=== PATIENT | male | born 1935 | race Caucasian/White ===

== ENCOUNTER 2022-12-03 14:24 | Inpatient (IN) ==
[2022-12-03] MEDS ORDERED: Dexamethasone IV 4 MG/ML VIAL 1 ml VIAL IV SLOW PU ONE (15:11)
[2022-12-03 15:13] LABS: ABS Basophils 0.1 10^3/uL (0.0-0.1); ABS Eosinophils 0.1 10^3/uL (0.0-0.5); ABS Lymphocytes 1.5 10^3/uL (1.0-4.8); ABS Monocytes 0.4 10^3/uL (0.0-1.1); ABS Neutrophils 4.2 10^3/uL (1.5-7.6); ABS Nucleated RBC 0.01 10^3/ul; Eosinophil % 1.9 %; Hematocrit 40.4 % (38-53); Hemoglobin 13.8 g/dL (13.2-16.3); Lymphocyte % 24.2 %; Mean Corpuscular Hgb Conc 34.2 g/dL (31-36); Mean Corpuscular Volume 96.5 fL (80-97); Mean Platelet Volume 7.8 fL (7.5-11.2); Nucleated Red Blood Cells % 0.2 %/100WBC (0.0-0.8); Platelet Count 251 10^3/uL (150-450); Red Blood Count 4.19 10^6/uL (4.06-5.63); White Blood Count 6.2 10^3/uL (3.6-10.2)
[2022-12-03 15:20] LABS: INR 1.05 (0.83-1.13)
[2022-12-03 15:37] LABS: Albumin 4.2 g/dL (3.2-5.2); Anion Gap 7 mmol/L (2-16); CO2 Carbon Dioxide 24 mmol/L (22-32); Calcium 9.2 mg/dL (8.6-10.3); Chloride 108 mmol/L (101-111); Potassium 4.4 mmol/L (3.5-5.0); Sodium 139 mmol/L (135-145)
[2022-12-03 15:43] LABS: ALT 8 U/L (7-52); AST 14 U/L (13-39); Albumin/Globulin Ratio 1.8 (1-3); Alkaline Phosphatase 62 U/L (35-149); Blood Urea Nitrogen 23 mg/dL (6-24); Creatinine, Serum 1.33 mg/dL (0.67-1.17); Globulin 2.4 g/dL (2-4); Glucose 94 mg/dL (70-100); Total Protein 6.6 g/dL (6.4-8.9); eGFR CKD-EPI 52.4 (>60)
[2022-12-03 15:44] LABS: HDL Cholesterol 53.6 mg/dL
[2022-12-03] MEDS ORDERED: levETIRAcetam 1000MG IVPREMIX 1,000 MG/100 ML BAG IVPB ONE (15:51)
[2022-12-03 16:07] LABS: Alcohol, S < 13 mg/dL (<13)
[2022-12-03 16:21] LABS: TSH Ultra Thyroid Stim Horm 1.12 mcIU/mL (0.34-5.60)
[2022-12-03] MEDS ORDERED: Labetalol IV 5 MG/ML 20 ml VIAL IV PUSH ONE (16:51)
[2022-12-03] MEDS: Pantoprazole VIAL 40 MG VIAL IV SCH (21:01)
[2022-12-03] MEDS: Dexamethasone IV 4 MG/ML VIAL 1 ml VIAL IV SLOW PU SCH (21:02)
[2022-12-03] MEDS: Enoxaparin 40 MG/0.4 ML SYR SUBCUT SCH (21:06)
[2022-12-04] MEDS: Dexamethasone IV 4 MG/ML VIAL 1 ml VIAL IV SLOW PU SCH ×4 (02:15→20:34)
[2022-12-04 04:14] LABS: ABS Lymphocytes 0.7 10^3/uL (1.0-4.8); Hematocrit 33.3 % (38-53); Hemoglobin 11.6 g/dL (13.2-16.3); Lymphocyte % 11.6 %; Mean Corpuscular Hemoglobin 33.7 pg (27-33); Mean Corpuscular Hgb Conc 34.9 g/dL (31-36); Mean Corpuscular Volume 96.5 fL (80-97); Mean Platelet Volume 7.7 fL (7.5-11.2); Nucleated Red Blood Cells % 0.1 %/100WBC (0.0-0.8); Platelet Count 202 10^3/uL (150-450); Red Blood Count 3.45 10^6/uL (4.06-5.63); Red Cell Distribution Width 13.8 % (12-17); White Blood Count 5.7 10^3/uL (3.6-10.2)
[2022-12-04] MEDS: levETIRAcetam 500 MG IVPREMIX 500 MG/100 ML BAG IV SCH ×2 (04:23→19:30)
[2022-12-04 04:36] LABS: Albumin 3.3 g/dL (3.2-5.2); Albumin/Globulin Ratio 1.9 (1-3); Calcium 7.5 mg/dL (8.6-10.3); Creatinine, Serum 1.18 mg/dL (0.67-1.17); Globulin 1.7 g/dL (2-4); Magnesium 1.5 mg/dL (1.9-2.7); Potassium 3.6 mmol/L (3.5-5.0); Total Bilirubin 0.5 mg/dL (0.2-1.0); eGFR CKD-EPI 60.5 (>60)
[2022-12-04] MEDS ORDERED: Magnesium Sulfate IV 3 GM in NS 0.9% 100 ml BAG 100 ML IVPB ONE (05:57)
[2022-12-04] MEDS ORDERED: Magnesium Sulfate IV 1GM/100ML 1 GM/100 ML BAG IV ONE (07:44)
[2022-12-04 07:59] LABS: Urine Appearance Clear; Urine Bilirubin Negative (Negative); Urine Blood Negative (Negative); Urine Color Yellow; Urine Glucose Negative (Negative); Urine Ketones Negative (Negative); Urine Nitrite Negative (Negative); Urine Protein 2+(100 mg/dL) (Negative); Urine Specific Gravity 1.014 (1.002-1.030); Urine Urobilinogen Negative (Negative)
[2022-12-04 08:10] LABS: Urine Bacteria Absent (Absent); Urine Red Blood Cell Trace(0-2/hpf) (Absent); Urine White Blood Cell Trace(0-5/hpf) (Absent)
[2022-12-04] MEDS ORDERED: Gadoteridol (CONTRAST) 279.3 MG/ML 10 ML IV ONE (09:00)
[2022-12-04] MEDS ORDERED: LORazepam 2 mg VIAL 1 ml IV PUSH ONE ×3 (12:02→12:49)
[2022-12-04] MEDS ORDERED: Lorazepam PYXIS KEY PRN ×3 (12:02→12:49)
[2022-12-04] MEDS ORDERED: LORazepam 2 mg VIAL 1 ml ONE ×2 (12:49→15:59)
[2022-12-04] MEDS ORDERED: Haloperidol 5 mg/ml SDV IV/IM 5 MG/ML AMP IV SLOW PU PRN (16:03)
[2022-12-04] MEDS ORDERED: Haloperidol 5 mg/ml SDV IV/IM 5 MG/ML AMP ONE ×2 (16:04→16:29)
[2022-12-04] MEDS ORDERED: Haloperidol 5 mg/ml SDV IV/IM 5 MG/ML AMP IV SLOW PU ONE ×2 (16:17)
[2022-12-04] MEDS ORDERED: Morphine 2 MG/ML SYRINGE ONE (17:13)
[2022-12-04] MEDS ORDERED: OLANZapine IM (NF) 10 MG VIAL IM ONE ×2 (17:41→18:31)
[2022-12-04] MEDS: Enoxaparin 40 MG/0.4 ML SYR SUBCUT SCH (20:33)
[2022-12-04] MEDS: Pantoprazole VIAL 40 MG VIAL IV SCH (20:33)
[2022-12-04] MEDS ORDERED: Dexmedetomidine 1,000 MCG in NS 0.9% 250 ml 240 ML IV SCH (22:00)
[2022-12-05] MEDS: Dexamethasone IV 4 MG/ML VIAL 1 ml VIAL IV SLOW PU SCH ×3 (02:17→18:10)
[2022-12-05 03:43] LABS: ABS Lymphocytes 0.8 10^3/uL (1.0-4.8); ABS Monocytes 0.5 10^3/uL (0.0-1.1); ABS Neutrophils 14.1 10^3/uL (1.5-7.6); Hematocrit 38.4 % (38-53); Hemoglobin 13.1 g/dL (13.2-16.3); Lymphocyte % 5.3 %; Mean Corpuscular Hemoglobin 32.7 pg (27-33); Mean Corpuscular Hgb Conc 34.1 g/dL (31-36); Mean Corpuscular Volume 95.9 fL (80-97); Mean Platelet Volume 8.2 fL (7.5-11.2); Platelet Count 239 10^3/uL (150-450); White Blood Count 15.4 10^3/uL (3.6-10.2)
[2022-12-05 04:04] LABS: Creatinine, Serum 1.36 mg/dL (0.67-1.17); Magnesium 2.6 mg/dL (1.9-2.7); Potassium 4.8 mmol/L (3.5-5.0)
[2022-12-05] MEDS: levETIRAcetam 500 MG IVPREMIX 500 MG/100 ML BAG IV SCH (05:19)
[2022-12-05] MEDS ORDERED: Dexamethasone IV 4 MG/ML VIAL 1 ml VIAL IV SLOW PU SCH (10:00)
[2022-12-05] MEDS ORDERED: NS 0.9% 1000 ml BAG 500 ML IV ONE (11:36)
[2022-12-05] MEDS ORDERED: Iodixanol (CONTRAST) 320 MG/ML 100 ML SDV IV ONE (13:59)
[2022-12-05] MEDS ORDERED: Polyethylene Glycol 3350 17 GM PACKET PO PRN (14:38)
[2022-12-05] MEDS ORDERED: NS 0.9% 1000 ml BAG 500 ML IV SCH (14:45)
[2022-12-05] MEDS ORDERED: Labetalol IV 5 MG/ML 20 ml VIAL IV PUSH ONE (18:01)
[2022-12-05] MEDS: Enoxaparin 40 MG/0.4 ML SYR SUBCUT SCH (20:28)
[2022-12-05] MEDS: Pantoprazole VIAL 40 MG VIAL IV SCH (20:28)
[2022-12-06] MEDS: Dexamethasone IV 4 MG/ML VIAL 1 ml VIAL IV SLOW PU SCH ×3 (00:39→16:04)
[2022-12-06 06:16] LABS: ABS Lymphocytes 0.6 10^3/uL (1.0-4.8); ABS Monocytes 0.4 10^3/uL (0.0-1.1); Hemoglobin 13.1 g/dL (13.2-16.3); Lymphocyte % 4.7 %; Mean Corpuscular Hemoglobin 32.6 pg (27-33); Mean Corpuscular Hgb Conc 33.6 g/dL (31-36); Mean Platelet Volume 8.2 fL (7.5-11.2); Platelet Count 226 10^3/uL (150-450); Red Blood Count 4.03 10^6/uL (4.06-5.63); Red Cell Distribution Width 14.2 % (12-17)
[2022-12-06 06:36] LABS: Calcium 8.7 mg/dL (8.6-10.3); Creatinine, Serum 1.32 mg/dL (0.67-1.17); Magnesium 2.3 mg/dL (1.9-2.7); Potassium 4.6 mmol/L (3.5-5.0); eGFR CKD-EPI 52.9 (>60)
[2022-12-06] MEDS ORDERED: Labetalol IV 5 MG/ML 20 ml VIAL IV PUSH ONE (08:19)
[2022-12-06] MEDS ORDERED: Gadoteridol (CONTRAST) 279.3 MG/ML 10 ML IV ONE (15:56)
[2022-12-06] MEDS: Enoxaparin 40 MG/0.4 ML SYR SUBCUT SCH (20:43)
[2022-12-06] MEDS: Pantoprazole VIAL 40 MG VIAL IV SCH (20:43)
[2022-12-07] MEDS: Dexamethasone IV 4 MG/ML VIAL 1 ml VIAL IV SLOW PU SCH ×2 (01:12→08:33)
[2022-12-07 14:35] VITALS: BP 141/64
== END 2022-12-07 17:40 | disposition home or self-care (01) | DRG 70 ==
LOC: ED 14:24 → SUATTDRO 17:00 → EDHOLD 17:00 → ICU 19:44 → MEDTELE 12-06 20:22
PROVIDERS: ADMIT Internal Medicine Pulmonary Disease; ATTEND Internal Medicine

== ENCOUNTER 2023-03-21 12:56 | Inpatient (IN) ==
[2023-03-21 14:51] LABS: Hematocrit 35.6 % (38-53); Hemoglobin 12.1 g/dL (13.2-16.3); Mean Corpuscular Hemoglobin 33.4 pg (27-33); Mean Corpuscular Hgb Conc 33.9 g/dL (31-36); Mean Corpuscular Volume 98.5 fL (80-97); Mean Platelet Volume 7.3 fL (7.5-11.2); Platelet Count 166 10^3/uL (150-450); Red Blood Count 3.61 10^6/uL (4.06-5.63); Red Cell Distribution Width 16.3 % (12-17); White Blood Count 6.7 10^3/uL (3.6-10.2)
[2023-03-21 15:26] LABS: Albumin 2.8 g/dL (3.2-5.2); C Reactive Protein 98.47 mg/L (<8.01); Calcium 8.4 mg/dL (8.6-10.3); Creatinine, Serum 1.57 mg/dL (0.67-1.17); Globulin 2.8 g/dL (2-4); Potassium 4.3 mmol/L (3.5-5.0); Total Bilirubin 0.5 mg/dL (0.2-1.0); Total Protein 5.6 g/dL (6.4-8.9); eGFR CKD-EPI 42.7 (>60)
[2023-03-21 16:02] LABS: ABS Lymphocytes 0.3 10^3/uL (1.0-4.8); ABS Monocytes 0.2 10^3/uL (0.0-1.1); ABS Neutrophils 6.2 10^3/uL (1.5-7.6); Eosinophil % 0.1 %; Lymphocyte % 4.2 %; Nucleated Red Blood Cells % 0.1 %/100WBC (0.0-0.8); RBC Morphology Normal (Normal)
[2023-03-21] MEDS: cefTRIAXone 1 gm/50 mL D5W 1 GM/50 ML BAG IV ONE (16:36)
[2023-03-21] MEDS: Iodixanol (CONTRAST) 320 MG/ML 100 ML SDV IV ONE (16:44)
[2023-03-21] MEDS: Azithromycin 500 mg/250 ml NS 500 MG/250 ML BAG IVPB ONE (16:53)
[2023-03-21] MEDS: Lactated Ringers 1000 ml BAG 1,000 ML IV ONE (16:53)
[2023-03-21] MEDS ORDERED: Vancomycin per Pharmacy 1 EA NOTE FOLLOW UP SCH (20:00)
[2023-03-21 20:16] LABS: Urine Appearance Cloudy; Urine Bilirubin Negative (Negative); Urine Blood Negative (Negative); Urine Color Yellow; Urine Glucose Negative (Negative); Urine Ketones Negative (Negative); Urine Nitrite Negative (Negative); Urine Protein 2+(100 mg/dL) (Negative); Urine Urobilinogen Negative (Negative)
[2023-03-21 20:25] LABS: Magnesium 1.8 mg/dL (1.9-2.7)
[2023-03-21 20:29] LABS: Urine Bacteria Absent (Absent); Urine Red Blood Cell 3+(>10/hpf) (Absent); Urine Squamous Epithelial Cell Present (Absent); Urine White Blood Cell 2+(11-20/hpf) (Absent)
[2023-03-21] MEDS: Cefepime 2 GM in Dextrose 2 GM/50 ML BAG IV SCH (20:38)
[2023-03-21] MEDS: Vancomycin 1,000 MG in NS 0.9% 250 ml 250 ML IVPB ONE (21:53)
[2023-03-21] MEDS: Senna TAB 8.6 mg TAB PO SCH (21:57)
[2023-03-21] MEDS: Enoxaparin 40 MG/0.4 ML SYR SUBCUT SCH (21:57)
[2023-03-21 22:25] LABS: Folate 15.37 ng/mL (5.90-24.80)
[2023-03-21] MEDS: Magnesium Sulfate 2 gm BAG 2 GM/50 ML BAG IVPB ONE (23:34)
[2023-03-22 05:40] LABS: ABS Lymphocytes 0.6 10^3/uL (1.0-4.8); ABS Monocytes 0.1 10^3/uL (0.0-1.1); ABS Neutrophils 6.3 10^3/uL (1.5-7.6); ABS Nucleated RBC 0.01 10^3/ul; Eosinophil % 0.4 %; Hematocrit 33.9 % (38-53); Hemoglobin 11.8 g/dL (13.2-16.3); Lymphocyte % 9.1 %; Mean Corpuscular Hemoglobin 34.1 pg (27-33); Mean Corpuscular Hgb Conc 34.6 g/dL (31-36); Mean Corpuscular Volume 98.4 fL (80-97); Mean Platelet Volume 7.1 fL (7.5-11.2); Nucleated Red Blood Cells % 0.2 %/100WBC (0.0-0.8); Platelet Count 163 10^3/uL (150-450); Red Blood Count 3.45 10^6/uL (4.06-5.63); Red Cell Distribution Width 16.9 % (12-17); White Blood Count 7.1 10^3/uL (3.6-10.2)
[2023-03-22 05:54] LABS: Albumin 2.7 g/dL (3.2-5.2); Albumin/Globulin Ratio 1.1 (1-3); Creatinine, Serum 1.31 mg/dL (0.67-1.17); Globulin 2.4 g/dL (2-4); HDL Cholesterol 40.5 mg/dL; Magnesium 2.1 mg/dL (1.9-2.7); Total Bilirubin 0.5 mg/dL (0.2-1.0); Total Protein 5.1 g/dL (6.4-8.9)
[2023-03-22] MEDS: Aspirin EC 81 mg TAB.EC (enteric coated) PO SCH (07:47)
[2023-03-22] MEDS: Cefepime 2 GM in Dextrose 2 GM/50 ML BAG IV SCH (07:47)
[2023-03-22] MEDS: Polyethylene Glycol 3350 17 GM PACKET PO SCH (07:47)
[2023-03-22] MEDS: Memantine XR 7 mg CAP PO SCH (07:50)
[2023-03-22] MEDS: NS 0.9% 1000 ml BAG 1,000 ML IV SCH (14:34)
[2023-03-22] MEDS: Azithromycin 500 mg/250 ml NS 500 MG/250 ML BAG IVPB SCH (15:56)
[2023-03-22] MEDS: Furosemide 20 mg/2 ml IV VIAL IV ONE (17:55)
[2023-03-22] MEDS ORDERED: Vancomycin 1000 MG in NS 0.9% 250 ML IVPB SCH (21:00)
[2023-03-23 07:09] LABS: ABS Lymphocytes 0.6 10^3/uL (1.0-4.8); ABS Monocytes 0.1 10^3/uL (0.0-1.1); ABS Neutrophils 5.2 10^3/uL (1.5-7.6); ABS Nucleated RBC 0.01 10^3/ul; Hematocrit 31.8 % (38-53); Lymphocyte % 9.5 %; Mean Corpuscular Hemoglobin 33.6 pg (27-33); Mean Corpuscular Hgb Conc 34.5 g/dL (31-36); Mean Corpuscular Volume 97.6 fL (80-97); Mean Platelet Volume 7.3 fL (7.5-11.2); Nucleated Red Blood Cells % 0.1 %/100WBC (0.0-0.8); Platelet Count 160 10^3/uL (150-450); Red Blood Count 3.26 10^6/uL (4.06-5.63); Red Cell Distribution Width 16.4 % (12-17)
[2023-03-23 07:31] LABS: Calcium 8.2 mg/dL (8.6-10.3); Creatinine, Serum 1.43 mg/dL (0.67-1.17); Potassium 4.4 mmol/L (3.5-5.0); eGFR CKD-EPI 47.7 (>60)
[2023-03-23 16:01] LABS: PCO2 Arterial 30 mmHg (35-45); PO2 Arterial 70 mmHg (80-100)
[2023-03-23] MEDS: SULFAMETHOXAZOLE IVPB SCH (16:12)
[2023-03-23] MEDS: TRIMETH IVPB SCH (16:12)
[2023-03-23] MEDS: D5W IVPB SCH (16:12)
[2023-03-23] MEDS: EPINEPHrine Anaphylaxis SYR CERTADOSE SYR KIT IM ONE ×2 (17:50→19:09)
[2023-03-23] MEDS: Magnesium Sulfate IV 1GM/100ML 1 GM/100 ML BAG IV ONE (18:13)
[2023-03-23] MEDS: Albuterol 2.5mg/3 ml (0.083%) NEB.SOLN INH ONE (19:06)
[2023-03-23] MEDS: methylPREDNISolone SOD SUCC 125 mg 2 ML VIAL IV ONE (19:14)
[2023-03-24] MEDS ORDERED: Lorazepam PYXIS KEY PRN (02:12)
[2023-03-24] MEDS: LORazepam 2 mg VIAL 1 ml IV PUSH ONE (02:27)
[2023-03-24 05:56] LABS: Hematocrit 33.3 % (38-53); Hemoglobin 11.5 g/dL (13.2-16.3); Mean Corpuscular Hemoglobin 33.4 pg (27-33); Mean Corpuscular Hgb Conc 34.4 g/dL (31-36); Mean Platelet Volume 7.5 fL (7.5-11.2); Platelet Count 177 10^3/uL (150-450); Red Blood Count 3.43 10^6/uL (4.06-5.63); Red Cell Distribution Width 16.6 % (12-17); White Blood Count 7.4 10^3/uL (3.6-10.2)
[2023-03-24 06:01] LABS: Calcium 8.9 mg/dL (8.6-10.3); Creatinine, Serum 1.45 mg/dL (0.67-1.17); Potassium 4.1 mmol/L (3.5-5.0); eGFR CKD-EPI 46.9 (>60)
[2023-03-24 07:34] LABS: ABS Lymphocytes 0.6 10^3/uL (1.0-4.8); ABS Monocytes 0.1 10^3/uL (0.0-1.1); ABS Neutrophils 6.7 10^3/uL (1.5-7.6); ABS Nucleated RBC 0.01 10^3/ul; Lymphocyte % 7.8 %; Nucleated Red Blood Cells % 0.1 %/100WBC (0.0-0.8)
[2023-03-24] MEDS ORDERED: Vancomycin Trough Check NOTE FOLLOW UP ONE (20:30)
[2023-03-25 02:01] LABS: Urine Appearance Clear; Urine Bilirubin Negative (Negative); Urine Blood 2+ (Negative); Urine Color Yellow; Urine Glucose Negative (Negative); Urine Ketones Negative (Negative); Urine Nitrite Negative (Negative); Urine Protein 2+(100 mg/dL) (Negative); Urine Specific Gravity 1.015 (1.002-1.030); Urine Urobilinogen Negative (Negative)
[2023-03-25 02:03] LABS: Urine Bacteria Absent (Absent); Urine Red Blood Cell 3+(>10/hpf) (Absent); Urine White Blood Cell Trace(0-5/hpf) (Absent)
[2023-03-25 08:16] LABS: ABS Lymphocytes 1.1 10^3/uL (1.0-4.8); ABS Monocytes 0.3 10^3/uL (0.0-1.1); ABS Neutrophils 8.6 10^3/uL (1.5-7.6); ABS Nucleated RBC 0.02 10^3/ul; Hematocrit 31.9 % (38-53); Hemoglobin 11.2 g/dL (13.2-16.3); Lymphocyte % 10.6 %; Mean Corpuscular Hemoglobin 33.9 pg (27-33); Mean Corpuscular Hgb Conc 35.2 g/dL (31-36); Mean Corpuscular Volume 96.2 fL (80-97); Mean Platelet Volume 7.6 fL (7.5-11.2); Nucleated Red Blood Cells % 0.2 %/100WBC (0.0-0.8); Platelet Count 195 10^3/uL (150-450); Red Blood Count 3.32 10^6/uL (4.06-5.63); Red Cell Distribution Width 16.5 % (12-17); White Blood Count 9.9 10^3/uL (3.6-10.2)
[2023-03-25 08:36] LABS: Calcium 8.7 mg/dL (8.6-10.3); Creatinine, Serum 1.5 mg/dL (0.67-1.17); Potassium 4.6 mmol/L (3.5-5.0); eGFR CKD-EPI 45.1 (>60)
[2023-03-26 06:02] LABS: ABS Lymphocytes 0.9 10^3/uL (1.0-4.8); ABS Monocytes 0.3 10^3/uL (0.0-1.1); ABS Neutrophils 9.2 10^3/uL (1.5-7.6); ABS Nucleated RBC 0.02 10^3/ul; Eosinophil % 0.1 %; Hematocrit 34.5 % (38-53); Hemoglobin 11.8 g/dL (13.2-16.3); Mean Corpuscular Hemoglobin 33.3 pg (27-33); Mean Corpuscular Hgb Conc 34.2 g/dL (31-36); Mean Corpuscular Volume 97.3 fL (80-97); Mean Platelet Volume 7.7 fL (7.5-11.2); Nucleated Red Blood Cells % 0.2 %/100WBC (0.0-0.8); Platelet Count 207 10^3/uL (150-450); Red Blood Count 3.55 10^6/uL (4.06-5.63); Red Cell Distribution Width 16.3 % (12-17); White Blood Count 10.4 10^3/uL (3.6-10.2)
[2023-03-26 06:20] LABS: Calcium 8.9 mg/dL (8.6-10.3); Creatinine, Serum 1.37 mg/dL (0.67-1.17); Magnesium 2.2 mg/dL (1.9-2.7); Potassium 4.4 mmol/L (3.5-5.0); eGFR CKD-EPI 50.2 (>60)
[2023-03-26] MEDS: Ondansetron 4 mg VIAL 2 MG/ML 2 ml VIAL IV PRN (09:12)
[2023-03-27 09:12] LABS: Hematocrit 36.7 % (38-53); Hemoglobin 12.8 g/dL (13.2-16.3); Mean Corpuscular Hemoglobin 33.9 pg (27-33); Mean Corpuscular Hgb Conc 34.9 g/dL (31-36); Mean Corpuscular Volume 97.2 fL (80-97); Mean Platelet Volume 7.5 fL (7.5-11.2); Platelet Count 209 10^3/uL (150-450); Red Blood Count 3.77 10^6/uL (4.06-5.63); Red Cell Distribution Width 16.6 % (12-17); White Blood Count 9.6 10^3/uL (3.6-10.2)
[2023-03-27 09:30] LABS: Calcium 9.2 mg/dL (8.6-10.3); Creatinine, Serum 1.38 mg/dL (0.67-1.17); Magnesium 2.3 mg/dL (1.9-2.7); Potassium 4.3 mmol/L (3.5-5.0); eGFR CKD-EPI 49.8 (>60)
[2023-03-27 09:49] LABS: ABS Basophils 0.1 10^3/uL (0.0-0.1); ABS Lymphocytes 0.9 10^3/uL (1.0-4.8); ABS Monocytes 0.3 10^3/uL (0.0-1.1); ABS Neutrophils 8.4 10^3/uL (1.5-7.6); ABS Nucleated RBC 0.03 10^3/ul; Lymphocyte % 9.1 %; Nucleated Red Blood Cells % 0.4 %/100WBC (0.0-0.8)
[2023-03-28 00:19] LABS: Adenovirus Undetected (Undetected); Bordetella parapertussis Undetected (Undetected); Bordetella pertussis Undetected (Undetected); Chlamydophila pneumoniae Undetected (Undetected); Coronavirus 229E Undetected (Undetected); Coronavirus HKU1 Undetected (Undetected); Coronavirus NL63 Undetected (Undetected); Coronavirus OC43 Undetected (Undetected); Human Metapneumovirus Undetected (Undetected); Human Rhinovirus/Enterovirus Undetected (Undetected); Influenza A Undetected (Undetected); Influenza B Undetected (Undetected); Mycoplasmoides pneumoniae Undetected (Undetected); Parainfluenza Virus 1 Undetected (Undetected); Parainfluenza Virus 2 Undetected (Undetected); Parainfluenza Virus 3 Undetected (Undetected); Parainfluenza Virus 4 Undetected (Undetected); Respiratory Syncytial Virus Undetected (Undetected); Specimen Source NASOPHARYNGEAL SWAB
[2023-03-28 06:44] LABS: Hematocrit 36.6 % (38-53); Hemoglobin 12.3 g/dL (13.2-16.3); Mean Corpuscular Hemoglobin 33.2 pg (27-33); Mean Corpuscular Hgb Conc 33.6 g/dL (31-36); Mean Corpuscular Volume 98.9 fL (80-97); Mean Platelet Volume 7.8 fL (7.5-11.2); Platelet Count 208 10^3/uL (150-450); White Blood Count 13.9 10^3/uL (3.6-10.2)
[2023-03-28 07:08] LABS: Calcium 9.2 mg/dL (8.6-10.3); Creatinine, Serum 1.45 mg/dL (0.67-1.17); Magnesium 2.4 mg/dL (1.9-2.7); Phosphorus 3.5 mg/dL (2.5-5.0); Potassium 4.7 mmol/L (3.5-5.0); eGFR CKD-EPI 46.9 (>60)
[2023-03-28] MEDS: D5LR 1000 ml BAG 1,000 ML IV SCH (13:29)
[2023-03-29 05:35] LABS: Hematocrit 36.5 % (38-53); Hemoglobin 12.4 g/dL (13.2-16.3); Mean Corpuscular Hemoglobin 33.4 pg (27-33); Mean Corpuscular Hgb Conc 33.9 g/dL (31-36); Mean Corpuscular Volume 98.4 fL (80-97); Mean Platelet Volume 7.6 fL (7.5-11.2); Platelet Count 203 10^3/uL (150-450); Red Blood Count 3.71 10^6/uL (4.06-5.63); Red Cell Distribution Width 15.9 % (12-17); White Blood Count 12.7 10^3/uL (3.6-10.2)
[2023-03-29 05:55] LABS: Calcium 8.9 mg/dL (8.6-10.3); Creatinine, Serum 1.34 mg/dL (0.67-1.17); Magnesium 2.3 mg/dL (1.9-2.7); Potassium 4.1 mmol/L (3.5-5.0); eGFR CKD-EPI 51.6 (>60)
[2023-03-29 06:20] LABS: ABS Lymphocytes 0.8 10^3/uL (1.0-4.8); ABS Monocytes 0.4 10^3/uL (0.0-1.1); ABS Neutrophils 11.4 10^3/uL (1.5-7.6); ABS Nucleated RBC 0.03 10^3/ul; Lymphocyte % 6.3 %; Nucleated Red Blood Cells % 0.2 %/100WBC (0.0-0.8)
[2023-03-29] MEDS ORDERED: Lactated Ringers 1000 ml BAG 1,000 ML IV ONE (11:18)
[2023-03-29] MEDS: D5LR 1000 ml BAG 1,000 ML IV SCH (12:26)
[2023-03-29] MEDS: Memantine XR 7 mg CAP PO ONE (14:18)
[2023-03-29] MEDS ORDERED: TRAMADOL ACETAMINOPHEN PO PRN (15:13)
[2023-03-29] MEDS: Megestrol 400 MG/10 ML SUSP PO SCH (17:32)
[2023-03-30] MEDS: Acetaminophen IV 1 GM/100ML 1,000 MG/100 ML BAG IV ONE (09:52)
[2023-03-30] MEDS: D5LR 1000 ml BAG 1,000 ML IV SCH (10:48)
[2023-03-30 11:27] LABS: Hematocrit 36.1 % (38-53); Mean Corpuscular Hemoglobin 33.6 pg (27-33); Mean Corpuscular Hgb Conc 33.1 g/dL (31-36); Mean Corpuscular Volume 101.3 fL (80-97); Mean Platelet Volume 7.6 fL (7.5-11.2); Platelet Count 197 10^3/uL (150-450); Red Blood Count 3.56 10^6/uL (4.06-5.63); Red Cell Distribution Width 16.7 % (12-17); White Blood Count 9.6 10^3/uL (3.6-10.2)
[2023-03-30] MEDS: levETIRAcetam 1000MG IVPREMIX 1,000 MG/100 ML BAG IVPB SCH (11:39)
[2023-03-30 11:48] LABS: ABS Monocytes 0.3 10^3/uL (0.0-1.1); ABS Neutrophils 8.3 10^3/uL (1.5-7.6); ABS Nucleated RBC 0.04 10^3/ul; Eosinophil % 0.2 %; Lymphocyte % 10.4 %; Nucleated Red Blood Cells % 0.4 %/100WBC (0.0-0.8)
[2023-03-30 12:13] LABS: Albumin 2.7 g/dL (3.2-5.2); Albumin/Globulin Ratio 0.9 (1-3); Calcium 8.1 mg/dL (8.6-10.3); Creatinine, Serum 1.35 mg/dL (0.67-1.17); Magnesium 2.1 mg/dL (1.9-2.7); Potassium 4.1 mmol/L (3.5-5.0); Total Bilirubin 0.8 mg/dL (0.2-1.0); Total Protein 5.7 g/dL (6.4-8.9); eGFR CKD-EPI 51.1 (>60)
[2023-03-30] MEDS: Valproic Acid IV 1,000 MG in NS 0.9% 100 ml BAG 100 ML IVPB ONE (12:57)
[2023-03-31] MEDS: Valproic Acid IV 500 MG in NS 0.9% 100 ml BAG 100 ML IVPB SCH (01:20)
[2023-03-31] MEDS: D5LR 1000 ml BAG 1,000 ML IV SCH (10:52)
[2023-04-01 06:05] LABS: Creatinine, Serum 1.09 mg/dL (0.67-1.17); Potassium 3.8 mmol/L (3.5-5.0); eGFR CKD-EPI 66.1 (>60)
[2023-04-01] MEDS: Iodixanol (CONTRAST) 320 MG/ML 100 ML SDV IV ONE (11:57)
[2023-04-01] MEDS: Dexamethasone IV 4 MG/ML VIAL 1 ml VIAL IV SLOW PU SCH (23:17)
[2023-04-02 06:30] LABS: Hematocrit 32.9 % (38-53); Hemoglobin 11.3 g/dL (13.2-16.3); Mean Corpuscular Hemoglobin 33.7 pg (27-33); Mean Corpuscular Hgb Conc 34.3 g/dL (31-36); Mean Platelet Volume 7.7 fL (7.5-11.2); Platelet Count 205 10^3/uL (150-450); Red Blood Count 3.36 10^6/uL (4.06-5.63); Red Cell Distribution Width 15.9 % (12-17); White Blood Count 9.8 10^3/uL (3.6-10.2)
[2023-04-02 06:41] LABS: Calcium 7.7 mg/dL (8.6-10.3); Creatinine, Serum 0.94 mg/dL (0.67-1.17); Magnesium 1.8 mg/dL (1.9-2.7); Potassium 3.6 mmol/L (3.5-5.0); eGFR CKD-EPI 78.9 (>60)
[2023-04-02] MEDS: Magnesium Sulf 4 GM/100 ML IV 4,000 MG/100 ML BAG IVPB ONE (09:48)
[2023-04-03] MEDS: Albuterol/Ipratropium NEB.SOL (2.5/0.5 MG) 3 ML NEB.SOLN INH SCH (02:25)
[2023-04-03 06:29] LABS: Calcium 7.8 mg/dL (8.6-10.3); Creatinine, Serum 1.07 mg/dL (0.67-1.17); Magnesium 2.9 mg/dL (1.9-2.7); Potassium 3.8 mmol/L (3.5-5.0); eGFR CKD-EPI 67.6 (>60)
[2023-04-04] MEDS: Haloperidol 5 mg/ml SDV IV/IM 5 MG/ML AMP IV SLOW PU PRN (02:05)
[2023-04-04 07:04] LABS: Calcium 7.6 mg/dL (8.6-10.3); Creatinine, Serum 1.06 mg/dL (0.67-1.17); Magnesium 2.3 mg/dL (1.9-2.7); Potassium 3.5 mmol/L (3.5-5.0); eGFR CKD-EPI 68.3 (>60)
[2023-04-04] MEDS: KCL 20 MEQ/100 ML IVPREMIX 20 MEQ/100 ML BAG IV SCH (09:34)
[2023-04-05] MEDS: Albuterol/Ipratropium NEB.SOL (2.5/0.5 MG) 3 ML NEB.SOLN INH PRN (01:07)
[2023-04-05] MEDS: KCL 20 MEQ/100 ML IVPREMIX 20 MEQ/100 ML BAG IV SCH (09:39)
[2023-04-05 10:12] LABS: Rapid COVID-19 Molecular Undetected (Undetected)
[2023-04-05 11:02] VITALS: BP 142/51
[2023-04-05 13:02] LABS: Urine Appearance Clear; Urine Bilirubin Negative (Negative); Urine Blood 2+ (Negative); Urine Color Yellow; Urine Glucose Negative (Negative); Urine Ketones Negative (Negative); Urine Nitrite Negative (Negative); Urine Protein 1+ (>=30 mg/dL) (Negative); Urine Specific Gravity 1.019 (1.002-1.030); Urine Urobilinogen 1+ (Negative); Urine pH 7.5 (5.0-8.0)
[2023-04-05 13:41] LABS: Urine Bacteria Absent /HPF (Absent); Urine Red Blood Cell 3+(>10/hpf) /HPF (0-Trace); Urine Squamous Epithelial Cell Present /HPF (Absent); Urine White Blood Cell 2+(11-20/hpf) /HPF (0-Trace)
== END 2023-04-05 13:18 | DRG 177 ==
LOC: ED 12:56 → SUATTDRO 18:59 → EDHOLD 18:59 → MEDTELE 20:34
PROVIDERS: ADMIT Internal Medicine; ATTEND Internal Medicine